=== PATIENT | male | born 1985 | race Two or more races ===

== ENCOUNTER 2021-09-22 00:58 | Emergency (ER) | payer SELFPAY ==
[~2021-09-22] VITALS: Ht 182.9 cm; Wt 190.0 kg
[2021-09-22 02:56] VITALS: BP 120/74
== END 2021-09-22 03:27 | disposition left against medical advice (07) ==
LOC: EDBD 00:58 → ER 00:58
DX: R07.89 Other chest pain (principal); Z53.21 Procedure and treatment not carried out due to patient leaving prior to being seen by health care provider
CPT/HCPCS: 93005